=== PATIENT | female | born 1970 | race Caucasian/White ===

== ENCOUNTER 2020-01-25 15:03 | Emergency (ER) | payer OTHER ==
[~2020-01-25] VITALS: Ht 157.5 cm; Wt 65.3 kg
[2020-01-25] MEDS ORDERED: PROBIOTIC1 EAC7 PO (15:20)
[2020-01-25] MEDS ORDERED: ADDERALL XR 2020 MG PO (15:21)
[2020-01-25] MEDS ORDERED: XANAX1 MG PO (15:21)
[2020-01-25] MEDS ORDERED: MONTELUKAST SODI4 M1 PO (15:21)
[2020-01-25] MEDS ORDERED: ZYRTEC10 M5 PO (15:21)
[2020-01-25 16:35] VITALS: BP 131/70
== END 2020-01-25 16:35 | disposition home or self-care (01) ==
LOC: M.ERS 15:03
DX: J30.9 Allergic rhinitis, unspecified (principal); Z20.828 Contact with and (suspected) exposure to other viral communicable diseases; Z90.49 Acquired absence of other specified parts of digestive tract; Z90.710 Acquired absence of both cervix and uterus; Z88.6 Allergy status to analgesic agent; Z88.5 Allergy status to narcotic agent